=== PATIENT | male | born 1960 | race Caucasian/White ===

== ENCOUNTER → 2017-11-09 | Day surgery (SDC) | payer MEDICARE ==
[~2017-11-09] MED LIST: ACETAMINOPHEN 1000 MG/100 ML 100 ML IV ONE; ACETAMINOPHEN/HYDROcodone 325 MG/5 MG TAB ONE; LACTATED RINGER'S 1000 ML INJ 1,000 ML ONE; MIDAZOLAM HCL 2 MG/2 ML VIAL ONE; MORPHINE SULFATE 2 MG/ML SYRINGE ONE; ONDANSETRON HCL 4 MG/2 ML VIAL IV PUSH ONE; PROPOFOL 200 MG/20 ML AMP IV ONE; ceFAZolin 2 GM PREMIX 50 ML ONE
--- NOTE | 2017-11-09 15:46 | PD.OP ---
cc: Omkar Milian MD Operative Report Date of Surgery: November 09, 2017 Preoperative Diagnosis: Recurrent left inguinal hernia Postoperative Diagnosis: Same, direct and indirect Procedure: Laparoscopic repair recurrent left inguinal hernia with mesh Anesthesia: General Surgeon: Omkar Milian Mortar Maker(s): ALLISON Bar Operation and Findings: This procedure was assisted by my nurse practitioner. The skill set of an SEATER GRINDER was medically necessary to provide improved efficiency and safety in the completion of the procedure. dev technical mgr was at the back table providing appropriate instrumentation while the nurse practitioner directly assisted me through the entirety of the procedure. Indications for procedure Patient was sent to me in consultation by Dr. Sandhu for evaluation of a recurrent left inguinal hernia. Patient had prior hernia surgery elsewhere. He developed symptoms and physical exam findings consistent with a recurrent left inguinal hernia. Intraoperative findings recurrent direct and indirect inguinal hernias. Estimated blood loss minimal. Description of procedure in detail The patient was identified as Carrillo Garza, taken to the operating room placed in a supine position. Sequential compression devices were placed on bilateral lower extremities. Following induction of adequate general anesthesia the patient's lower abdomen was prepped and draped in the usual sterile fashion with Betadine. A timeout procedure was performed. Following completion timeout procedure everyone's satisfaction within the room local anesthetic was infiltrated generously in the infraumbilical position. A 2 cm vertical infraumbilical midline incision was carried out with a scalpel and dissection continued posteriorly to the level of the anterior rectus fascia in the left side. This was incised transversely allowing for development of a preperitoneal plane with the surgeon's finger directed towards the pubic symphysis. With the patient in Trendelenburg position the preperitoneal dissecting balloon was placed into the preperitoneal space and under direct laparoscopic view inflated to a total of approximately 30 pumps. This allowed identification of the pubic symphysis left side Gustavo's ligament and inferior epigastric vessels. The balloon was desufflated removed and the structural balloon trocar placed in the preperitoneal space its balloon inflated and CO2 insufflation to level of 11 mmHg ensued. 2 infraumbilical midline 5 mm trochars were then placed into the preperitoneal space under direct laparoscopic view after infiltration of the skin with local anesthetic and incision the skin with a scalpel. Blunt dissectors were used to identify incarcerated fat and a direct hernia defect and this was reduced from the pseudo-sac. Blunt dissection lateral and posterior the spermatic cord was performed. The anterior medial surface was examined and adherent hernia sac was reduced to the base of the spermatic cord. Direct and indirect hernia defects were easily seen and photographed. The direct hernia pseudo-sac was tacked to the anterior Gustavo's ligament with the tacking device. A 4 x 6" piece of atrium Prolite mesh was placed with an anterolateral slit around the spermatic cord intact position of the tacking device. 2 tacks were used to approximate the anterolateral slit and 2 attacks one on Gustavo's ligament warm and the superior medial portion of the mesh was replaced. A 2 x 6" piece of the mesh was placed across the anterolateral slit and help position the tacking device placing tacks superior lateral inferior medial and superior medial. Care was taken to avoid tach placement inferior laterally to avoid cutaneous nerve injury. Photographs were taken of the clip completed repair. Remaining local anesthetic was placed into the preperitoneal space. Trochars were removed under direct visualization. There was no evidence of bleeding from trocar sites. During desufflation the preperitoneal space the mesh was held against the abdominal wall inferior laterally. Infraumbilical trocar was removed. The anterior rectus fascial incision was closed with a running 2-0 Vicryl suture. Skin incisions were approximated with 4-0 Monocryl subcuticular sutures. Dressings were applied with Mastisol and half-inch brown Steri-Strips. Patient tolerated the procedure without apparent complication. Sponge needle and instrument counts were correct at the end of the case. Patient was transported to PACU in stable condition. Omkar Milian MD November 09, 2017 15:46
== END | disposition home or self-care (01) ==
LOC: ESDC 11:48
PROVIDERS: ATTEND Surgery Trauma Surgery
DX: K40.91 Unilateral inguinal hernia, without obstruction or gangrene, recurrent (principal)
CPT/HCPCS: 00840; 49651; C1727; C1781; J0131; J0690; J2250; J2270; J2405; J3010; J7120